=== PATIENT | female | born 1960 | race Caucasian/White ===

== ENCOUNTER 2018-04-04 10:20 | Outpatient (CLI) | payer MEDICARE, MEDICAID ==
--- NOTE | 2018-04-04 12:11 | Diagnostic Imaging Report ---
Ultrasound of the bilateral breasts HISTORY: Screening COMPARISON: None Technique: Sonography of the bilateral breasts was performed in multiple planes. FINDINGS: Exam of the right breast demonstrates heterogeneous and glandular breast tissue. No discrete focal lesions identified. Exam of the left breast demonstrates heterogeneous and glandular breast tissue. No discrete focal lesions identified. IMPRESSION: Heterogeneous glandular and fatty breast tissue. No discrete focal lesion identified. BI-RADS 0, incomplete. Mammographic correlation is also needed to complete the examination. Note that a clinically suspicious breast abnormality should not preclude sonographic findings.
== END 2018-04-04 11:00 | disposition home or self-care (01) ==
LOC: RAD 10:20
DX: Z00.01 Encounter for general adult medical examination with abnormal findings (principal); R92.8 Other abnormal and inconclusive findings on diagnostic imaging of breast
CPT/HCPCS: 76641